=== PATIENT | female | born 1960 | race Caucasian/White ===

== ENCOUNTER → 2018-01-27 08:21 | Outpatient (CLI) | payer OTHER, SELFPAY ==
--- NOTE | 2018-01-27 | DI.MG.S_ITS ---
BILATERAL DIGITAL SCREENING MAMMOGRAM 3D/2D WITH CAD: 01/27/2018 CLINICAL: Routine screening. Family history of breast cancer. Comparison is made to exams dated: 01/16/2017 mammogram, 12/29/2015 mammogram, and 05/06/2014 mammogram - [facility]. There are scattered fibroglandular elements in both breasts. Current study was also evaluated with a Computer Aided Detection (CAD) system. There is a benign biopsy clip in the right breast. No significant masses, calcifications, or other findings are seen in either breast. There has been no significant interval change. IMPRESSION: NEGATIVE There is no mammographic evidence of malignancy. A 1 year screening mammogram is recommended. This exam was interpreted at Station ID: [id number]. NOTE: For mammograms, a report in lay terms will be sent to the patient. Approximately 15% of breast malignancies will not be visualized mammographically. In the management of a palpable breast mass, a negative mammogram must not discourage biopsy of a clinically suspicious lesion. Electronically Signed By: Dionne mcgowan/carroll:01/29/2018 14:43:34 copy to: Patrick Rincon letter sent: Normal Exam ACR BI-RADS Category 1: Negative 3341F
== END ==
PROVIDERS: PCP Family Medicine; Visit Provider Specialist
DX: Z12.31 Encounter for screening mammogram for malignant neoplasm of breast (principal); Z80.3 Family history of malignant neoplasm of breast
CPT/HCPCS: 77063; 77067

== ENCOUNTER → 2019-02-12 09:35 | Outpatient (CLI) | payer OTHER, SELFPAY ==
--- NOTE | 2019-02-12 | DI.MG.S_ITS ---
BILATERAL DIGITAL SCREENING MAMMOGRAM 3D/2D WITH CAD: 02/12/2019 CLINICAL: Routine screening. Family history of breast cancer. Comparison is made to exams dated: 01/27/2018 mammogram, 01/16/2017 mammogram, and 12/29/2015 mammogram - [facility]. There are scattered fibroglandular elements in both breasts. Current study was also evaluated with a Computer Aided Detection (CAD) system. There is a biopsy clip in the right breast. No significant masses, calcifications, or other findings are seen in either breast. There has been no significant interval change. IMPRESSION: NEGATIVE There is no mammographic evidence of malignancy. A 1 year screening mammogram is recommended. This exam was interpreted at Station ID: [id number]. NOTE: For mammograms, a report in lay terms will be sent to the patient. Approximately 15% of breast malignancies will not be visualized mammographically. In the management of a palpable breast mass, a negative mammogram must not discourage biopsy of a clinically suspicious lesion. Electronically Signed By: Joaquin alonzo/carroll:02/14/2019 18:11:41 copy to: Anabelle Cuellar letter sent: Normal Exam ACR BI-RADS Category 1: Negative 3341F
== END ==
PROVIDERS: PCP Family Medicine; Visit Provider Family Medicine
DX: Z12.31 Encounter for screening mammogram for malignant neoplasm of breast (principal); Z80.3 Family history of malignant neoplasm of breast
CPT/HCPCS: 77063; 77067

== ENCOUNTER 2019-04-19 07:28 | Day surgery (SDC) | payer OTHER, SELFPAY ==
[2019-04-19] MEDS: SODIUM CHLORIDE 0.9% 1,000 ML 200 ML IV (07:44)
[2019-04-19 07:50] VITALS: BP 117/78; PULSE 88; RESP 20; TEMP 36.3; O2SAT 100; BMI 24.2
--- NOTE | 2019-04-19 08:53 | PM.HP.1 ---
History of Present Illness History of Present Illness Date Patient Seen: 04/19/19 Time Patient Seen: 08:53 Chief complaint: [id number] Narrative: This is a 59-year-old woman who has never had a screening colonoscopy. She denies any personal or family history of colon cancer. She believes her mother may have had some colon polyps. She denies any personal history of hematochezia, melena, unexplained abdominal pain, unexplained weight loss. She has frequent sinusitis requiring antibiotics, but is otherwise healthy. She has had treatment for precancerous lesion of the cervix, and she has had 2 C sections. ROS Thirteen system review is otherwise negative other than as mentioned below and in HPI. PE: GENERAL: Well groomed and cooperative. Appears stated age. Answers questions promptly and appropriately. Vital signs noted. HENT: Normocephalic, atraumatic. Hearing intact. Oral mucosa is pink and moist. EYES: Conjunctiva pink, sclera white, no periorbital swelling. CARDIOVASCULAR: Regular rate. No pedal edema. RESPIRATORY: Non-tachypneic, breathing comfortably on room air. GASTROINTESTINAL: Abdomen soft and non-distended GENITALURINARY: No flank tenderness. MUSCULOSKELETAL: Equal tone and mass bilaterally. SKIN: Warm, dry, soft, appropriate color for ethnicity. No other lesions, rashes, or wounds. NEURO: Alert and Oriented X 3. No gross sensory deficits, or cognitive issues. PSYCH: Appropriate affect and mood. Patient History Surgical History Status post delivery Status post delivery Family & Social History Family History Mother Age: 75 Hypertension High cholesterol Mental health problem Social History: household members spouse Tobacco & Substance use: Smoking Status Never smoker alcohol intake current alcohol intake frequency a few times a week Substance Use Type does not use Meds Home Medications and Allergies Home Medications Medication Instructions Recorded Confirmed Type No Known Home Medications 04/19/19 04/19/19 History Allergies Allergy/AdvReac Type Severity Reaction Status Date / Time No Known Drug Allergies Allergy Verified 04/19/19 08:11 Exam Vital Signs (past 8 hours): - 04/19/19 07:50 Temperature 97.3 F L Pulse Rate 88 Respiratory Rate 20 Blood Pressure 117/78 Pulse Oximetry 100 Oxygen Delivery Method Room Air Assessment & Plan Assessment and plan (1) At average risk for colon cancer: Current visit: Yes Status: Acute Quality VTE Deep Vein Thrombosis/Pulmonary Embolism Present on Admission: No
[2019-04-19] MEDS: MIDAZOLAM 5 MG/5 ML VIAL IV (09:14)
[2019-04-19] MEDS: fentaNYL 250 MCG/5 ML INJ IV (09:14)
--- NOTE | 2019-04-19 09:16 | P.OP.ENDO_ITS ---
Operative Date/Time/Diagnoses Date of procedure: 04/19/19 Time of procedure: 09:16 Pre-op diagnosis: Average risk for colon cancer, never had a screening colonoscopy Post-op diagnosis: other (Average risk for colon cancer, normal colonoscopy) Procedure & Clinicians Study performed: Screening colonoscopy Same procedure as scheduled: Yes Indications: Average risk for colon cancer, never had a screening colonoscopy Surgeon: Jackie Villegas Procedure Notes SCOAP/Timeout: Performed Procedure in detail: The patient was brought to the room and placed in left lateral decubitus position with all bony prominences padded. A time-out was performed and then the patient was given procedural sedation starting with 4 mg of Versed and 100 mcg of fentanyl. A total of 6 mg of Versed and 200 micro g of fentanyl were given for the entire procedure. Vitals were monitored throughout the procedure and remained stable. Once adequately sedated the procedure was begun. A rectal exam was performed revealing no abnormalities. The colonoscope was then introduced to the rectum and advanced to the cecum in the usual fashion. The cecum was identified by the appendiceal orifice, the mucosal tri- fold, and the ileocecal valve. The scope was then retracted while rotating side to side and examining each mucosal fold. At the conclusion of the procedure retroflexion was performed and small grade 1 internal hemorrhoids without stig garcia of bleeding were seen. The scope was then withdrawn from the rectum the procedure was concluded. The patient tolerated the procedure well and was transferred to the PACU in stable condition. Scope withdrawal time: 8 Sedation minutes: 18 Specimen(s): none sent Complications: none Impression: Normal colon Post-procedure Recommendations: Colonscopy in 10 years Follow up: as needed Disposition: PACU
[2019-04-19 09:20] VITALS: BP 104/55; PULSE 80; RESP 16; TEMP 36.4; O2SAT 97
[2019-04-19 09:30] VITALS: BP 103/78; PULSE 83; RESP 16; TEMP 36.3; O2SAT 99
== END 2019-04-19 09:45 | disposition home or self-care (01) ==
PROVIDERS: PCP Family Medicine; Referring Provider Surgery; Visit Provider Surgery
PROC: 0DJD8ZZ Inspection of Lower Intestinal Tract, Via Natural or Artificial Opening Endoscopic (ICD-10-PCS; CPT 45378; principal; 2019-04-19 08:30)
DX: Z12.11 Encounter for screening for malignant neoplasm of colon (principal); K64.0 First degree hemorrhoids
CPT/HCPCS: 45378; 99152; J2250; J3010

== ENCOUNTER 2019-05-10 08:16 | Emergency (ER) | payer OTHER, SELFPAY ==
[2019-05-10] VITALS (9 sets, daily range): BP systolic 124–148; BP diastolic 67–90; PULSE 71–100; RESP 13–20; TEMP 36.9; O2SAT 96–99; BMI 24.2
--- NOTE | 2019-05-10 08:49 | ED_ITS ---
HPI - Psych General Chief Complaint: Psychiatric Symptoms Stated Complaint: psychological issues Time Seen by Provider: 05/10/19 08:36 Source: patient and family Mode of arrival: Ambulatory History of Present Illness HPI Narrative: CC: Acute anxiety and not sleeping. HPI: The patient is a 59-year-old female who presents to the emergency department with her . The patient has been very anxious since Monday. At times she has been paranoid of thinking that all of this illness has caused by the government. She was face timing with arm from a friend arm and a recognize person did not believe that that was the person arm on the phone. She has been of very suspicious arm. Since Monday of last week the patient has only slept may be a total of 15 hours according to her . The patient states that she thinks that she is a bad person that needs to repeat tent and should be here. She states that only at 1 time did she feel like she wanted to harm herself and that is when she filled the bathtub full of water and was going to step into it but decided not to. She denies wanting to hurt anyone else. She said that she could not do that. She denies a past history of any mental health history or depression. She denie s a history of asthma myocardial infarction stroke hypertension or diabetes mellitus. 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 She does not smoke cigarettes vapor chew tobacco or use any drugs such as marijuana. She does periodically drink alcohol. She denies any fever chills or sweats. She has had no headache nasal congestion sore throat. She has had no new cough or shortness of breath. She denies any chest pain palpitations dizziness abdominal pain nausea vomiting diarrhea or urinary symptoms. She does not sleep at night and is tired in the morning. Her appetite has been poor. She is not aware of as to whether not she has gained or lost weight. Related Data Home Medications Medication Instructions Recorded Confirmed No Known Home Medications 04/19/19 04/19/19 Allergies Allergy/AdvReac Type Severity Reaction Status Date / Time No Known Drug Allergies Allergy Verified 05/10/19 08:34 Review of Systems Review of Systems Narrative: The patient's review of systems were all negative except for those mentioned in the history of present illness. Patient History Surgical History Status post delivery Status post delivery Family History Mother Age: 75 Hypertension High cholesterol Mental health problem Social History household members: spouse Smoking Status: Never smoker alcohol intake: current Smoking Status: Never smoker alcohol intake frequency: a few times a week Substance Use Type: does not use Exam Narrative Exam Narrative: PHYSICAL EXAM: CONSTITUTIONAL: Awake, Alert, Oriented, Cooperative in NAD. Does not appear toxic or ill. The patient speaks in a monotone. She has a blunted flat affect. She does not appear excited or emotional. The patient became tearful when she states that she thinks about a friend media who is developing dementia. HEAD: AT/NC EENT: PERRL, FROM of eyes, no discharge, No epistaxis or nasal drainage Oral mucosa is moist and pink, posterior pharynx is without erythema or exudate. NECK: Supple, no obvious JVD, Trachea is midline without stridor, no palpable LN or masses. SPINE: No gross deformity, no palpable tenderness of the cervical, thoracic, lumbar or sacral spine. No CVA tenderness. THORAX: No deformity, retractions, chest wall tenderness. LUNGS: Clear with symmetrical breath sounds without respiratory distress HEART: Normal heart tones, regular rhythm and rate without murmur. ABDOMEN: Soft, non-tender, normal bowel sounds without guarding, rebound, rigidity or palpable mass EXTREMITIES: No edema, cyanosis, deformity or tenderness. SKIN: No rash, bruising, petechiae or purpura. NEURO: Awake, alert, oriented, conversive, cranial nerves II-XII are symmetrical and normal, moves all 4 extremities and is ambulatory Initial Vital Signs Initial Vital Signs: Vital Signs Temperature 98.4 F 05/10/19 08:34 Pulse Rate 75 05/10/19 08:34 Respiratory Rate 20 05/10/19 08:34 Blood Pressure 131/76 05/10/19 08:34 Pulse Oximetry 99 05/10/19 08:34 Course Course Course Narrative: 09:57 the patient's laboratory chemistries appear normal. Social dose work has been notified. 1028: Patient is considered medically cleared. The certified medical assistant states that the patient has agreed to her inpatient treatment and further evaluation. They are working on placement. 1306: The certified medical assistant is working on trying to find placement for the patient. One institution requested a neuro consult thinking that the patient has a neurological component. Her neuro exam at this time is completely within normal limits. We do not have the capabilities at this emergency department to order a neuro consult and evaluation without transferring the patient to a secondary or tertiary care center. There is no neurologist in town who comes into the emergency department to consult and evaluate patient's. 1450 the patient's been medically cleared. Her laboratory chemistries are all within an acceptable normal range. Her neuro exam clinically is normal and symmetrical. The patient is confused and is speaking gibberish. A chest x-ray will be obtained on the patient as well as a CT of her head. The patient has been excepted to [facility]. Her bed will become available after 7:00 p.m.. 1638 chest x-ray reveals no acute cardiopulmonary pathology. CT of the head reveals no acute intracranial pathology, hemorrhage, infarct, mass effect. The patient is be going to be transferred to [facility]. Orders Ordered: ED Orders 05/10/19 08:47 Consult to [facility] [place] [facility] Urgent EKG-12 Lead Stat 05/10/19 09:35 Acetaminophen Stat Complete Blood Count AUTO DIFF Stat Comprehensive Metabolic Panel Stat Ethanol (ETOH) Stat Salicylate Stat Thyroid Stimulating Hormone Stat 05/10/19 11:05 Urine Drug Screen, Rapid Stat 05/10/19 14:56 CT head/brain wo con Stat 05/10/19 14:57 XR chest 1V Stat Vital Signs Vital signs: Vital Signs - 8 hr 05/10/19 09:00 05/10/19 09:30 05/10/19 10:00 Pulse Rate 76 71 76 Respiratory Rate Blood Pressure [Left Arm] Pulse Oximetry 98 97 96 05/10/19 11:52 05/10/19 13:22 05/10/19 14:03 Pulse Rate 71 83 82 Respiratory Rate 13 15 Blood Pressure [Left Arm] 134/71 124/67 132/79 Pulse Oximetry 98 98 96 05/10/19 15:27 Pulse Rate 79 Respiratory Rate 17 Blood Pressure [Left Arm] 148/90 H Pulse Oximetry 98 MDM - Psych Medical Records Attestation: I reviewed the patient's medical records. Lab Data Attestation: I reviewed the patient's lab results. Result diagrams: 05/10/19 09:35 05/10/19 09:35 Labs: Lab Results 05/10/19 05/10/19 05/10/19 Range/Units 09:35 09:35 09:35 WBC 7.2 (4.5-11.0) X10^3/uL RBC 4.77 (4.0-5.2) X10^6/uL Hgb 14.7 (12.0-16.0) g/dL Hct 43.5 (36-46) % MCV 91.4 (80-100) fL MCH 30.9 (26-34) PG MCHC 33.8 (30-36) % RDW 12.7 (11.6-14.8) % Plt Count 253 (150-400) X10^3/uL Neut % (Auto) 66.9 (50-75) % Lymph % (Auto) 25.3 (25-40) % Daggett % (Auto) 7.1 (3-14) % Eos % (Auto) 0.1 L (2-4) % Baso % (Auto) 0.6 (0-2) % Neut # (Auto) 4800 (8143-7513) /uL Lymph # (Auto) 1800 (0983-4764) /uL Daggett # (Auto) 500 (0-900) /uL Eos # (Auto) 0 (0-450) /uL Baso # (Auto) 0 (0-100) /uL Sodium 139 (137-145) mmol/L Potassium 4.0 (3.4-5.1) mmol/L Chloride 104 (98-107) mmol/L Carbon Dioxide 31 (22-32) mmol/L BUN 15 (7-17) mg/dL Creatinine 0.77 (0.52-1.04) mg/dL Estimated GFR > 60.0 (>60) mL/min BUN/Creatinine Ratio 19.5 (6-22) Glucose 108 H (70-100) mg/dL Calcium 9.4 (8.4-10.2) mg/dL Total Bilirubin 0.4 (0.2-1.3) mg/dL AST 20 (14-36) IU/L ALT 19 (<35) IU/L Alkaline Phosphatase 66 (38-126) U/L Total Protein 7.4 (6.3-8.2) g/dL Albumin 3.9 (3.5-5.0) g/dL Globulin 3.5 (1.7-4.1) g/dL Albumin/Globulin Ratio 1.1 (1.0-2.8) TSH 0.58 (0.47-4.68) uIU/mL Salicylates < 1.0 (<20) mg/dL U Opiates 300ng/mL cut (Negative) Ur Oxycodone Screen (Negative) Urine Methadone Screen (Negative) Acetaminophen < 10 L (10-30) ug/mL Ur Barbiturates Screen (Negative) U Tricyclic Antidepress (Negative) Ur Phencyclidine Scrn (Negative) Ur Amphetamines Screen (Negative) U Methamphetamines Scrn (Negative) Ur MDMA Scrn (Ecstasy) (Negative) U Benzodiazepines Scrn (Negative) Urine Cocaine Screen (Negative) U Marijuana (THC) Screen (Negative) Ethyl Alcohol < 10 ( - 10) mg/dL 05/09/ Range/Units 11:05 WBC (4.5-11.0) X10^3/uL RBC (4.0-5.2) X10^6/uL Hgb (12.0-16.0) g/dL Hct (36-46) % MCV (80-100) fL MCH (26-34) PG MCHC (30-36) % RDW (11.6-14.8) % Plt Count (150-400) X10^3/uL Neut % (Auto) (50-75) % Lymph % (Auto) (25-40) % Daggett % (Auto) (3-14) % Eos % (Auto) (2-4) % Baso % (Auto) (0-2) % Neut # (Auto) (9769-6791) /uL Lymph # (Auto) (0536-7092) /uL Daggett # (Auto) (0-900) /uL Eos # (Auto) (0-450) /uL Baso # (Auto) (0-100) /uL Sodium (137-145) mmol/L Potassium (3.4-5.1) mmol/L Chloride (98-107) mmol/L Carbon Dioxide (22-32) mmol/L BUN (7-17) mg/dL Creatinine (0.52-1.04) mg/dL Estimated GFR (>60) mL/min BUN/Creatinine Ratio (6-22) Glucose (70-100) mg/dL Calcium (8.4-10.2) mg/dL Total Bilirubin (0.2-1.3) mg/dL AST (14-36) IU/L ALT (<35) IU/L Alkaline Phosphatase (38-126) U/L Total Protein (6.3-8.2) g/dL Albumin (3.5-5.0) g/dL Globulin (1.7-4.1) g/dL Albumin/Globulin Ratio (1.0-2.8) TSH (0.47-4.68) uIU/mL Salicylates (<20) mg/dL U Opiates 300ng/mL cut Negative (Negative) Ur Oxycodone Screen Negative (Negative) Urine Methadone Screen Negative (Negative) Acetaminophen (10-30) ug/mL Ur Barbiturates Screen Negative (Negative) U Tricyclic Antidepress Negative (Negative) Ur Phencyclidine Scrn Negative (Negative) Ur Amphetamines Screen Negative (Negative) U Methamphetamines Scrn Negative (Negative) Ur MDMA Scrn (Ecstasy) Negative (Negative) U Benzodiazepines Scrn Negative (Negative) Urine Cocaine Screen Negative (Negative) U Marijuana (THC) Screen Negative (Negative) Ethyl Alcohol ( - 10) mg/dL Point of Care Testing Glucose POC 83 Urine Dip Bedside Urine Glucose Negative Bedside Urine Bilirubin - Negative Bedside Urine Ketone - Negative Urine Specific [place] 1.015 Bedside Urine Occult Blood - Negative Bedside Urine pH 7.0 Bedside Urine Protein - Negative Bedside Urine Urobilinogen - Negative Bedside Urine Nitrite - Negative Bedside Urine Leukocytes - Negative Esterase ECG Data Attestation: I personally reviewed and interpreted this ECG as follows: Interpretation: The patient's EKG obtained on May 09 at 09:0 7:33 a.m. reveals a sinus rhythm with a ventricular rate of 83. Intervals are normal with normal axis. T-wave is inverted in lead V1. There are no other acute diagnostic ST or T-wave changes. The EKG otherwise appears normal. Discharge Plan Departure Patient Disposition: Xfer Psychiatric Hosp Clinical Impression: Acute psychosis, Acute anxiety Depression Qualifiers: Depression Type: unspecified Qualified Code(s): F32.9 - Major depressive disorder, single episode, unspecified Discharge Date/Time: 05/10/19 19:10 Referrals: Patrick Rincon MD [Primary Care Provider] -
[2019-05-10 09:42] LABS: Add Manual Diff / Slide Review NO; Basophils Absolute Auto 0 /uL (0-100); Basophils Percent Auto 0.6 % (0-2); Eosinophils Absolute Auto 0 /uL (0-450); Eosinophils Percent Auto 0.1 % (2-4); Hematocrit 43.5 % (36-46); Hemoglobin 14.7 g/dL (12.0-16.0); Lymphocytes Absolute Auto 1800 /uL (1100-4500); Lymphocytes Percent Auto 25.3 % (25-40); Mean Corpuscular HGB Conc 33.8 % (30-36); Mean Corpuscular Hemoglobin 30.9 PG (26-34); Mean Corpuscular Volume 91.4 fL (80-100); Monocytes Absolute Auto 500 /uL (0-900); Monocytes Percent Auto 7.1 % (3-14); Neutrophils Absolute Auto 4800 /uL (1500-7000); Neutrophils Percent Auto 66.9 % (50-75); Platelet Count 253 X10^3/uL (150-400); Red Blood Cell Count 4.77 X10^6/uL (4.0-5.2); Red Cell Distribution Width 12.7 % (11.6-14.8); White Blood Cell Count 7.2 X10^3/uL (4.5-11.0)
[2019-05-10 09:54] LABS: Acetaminophen < 10 ug/mL (10-30); Alanine Aminotransferase 19 IU/L (<35); Albumin 3.9 g/dL (3.5-5.0); Albumin Globulin Ratio 1.1 (1.0-2.8); Alkaline Phosphatase 66 U/L (38-126); Aspartate Aminotransferase 20 IU/L (14-36); BUN Creatinine Ratio 19.5 (6-22); Bilirubin Total 0.4 mg/dL (0.2-1.3); Blood Urea Nitrogen 15 mg/dL (7-17); Calcium 9.4 mg/dL (8.4-10.2); Carbon Dioxide 31 mmol/L (22-32); Chloride 104 mmol/L (98-107); Estimated Glomerular Filt Rate > 60.0 mL/min (>60); Ethanol (ETOH) < 10 mg/dL; Globulin 3.5 g/dL (1.7-4.1); Glucose 108 mg/dL (70-100); HEMOLYSIS < 15 (0-50); Salicylate < 1.0 mg/dL (<20); Sodium 139 mmol/L (137-145); Total Protein 7.4 g/dL (6.3-8.2)
[2019-05-10 10:29] LABS: Thyroid Stimulating Hormone 0.58 uIU/mL (0.47-4.68)
--- NOTE | 2019-05-10 10:52 | CM.SWNOTE ---
Addendum entered by Fely Aguilar, [facility] 05/10/19 15:43: Updated Dr Rodriguez and nursing staff. Spoke w/spouse Bony and explained what to bring list he will grab items for Shital before transport time. Addendum entered by Fely Sheikh, [facility] 05/10/19 15:26: Accepted at [facility] [place] . Intake: Marvy Accepting Physician: Dr Smita Harris RN to RN report: P# [phone] Shital and spouse Bony updated and remain agreeable to plan. 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 Beginning Monday, Shitla admits to increasing paranoid thoughts, has only slept approx 15 hours since Monday, loss of appetite, admits to feeling I am wrong and admits to thinking about suicide by drowning in her bathtub. Spouse Bony admits he is very concerned about his and she has been seeing things like their Vet becoming someone evil and Shital has not recognized her own two dtrs on facetime. 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 Hx Mental Health and Chemical None reported, no significant Dependency h/o depression or anxiety per Shital and spouse Bony Family Hx of Behavioral Abuse Sister and Mother have significant mental health issues, Shital did not elaborate Psychiatric Hospitalizations (date(s)/ None reported location) Support System(s) Spouse, two adult dtrs living in the area, friends School/Work Not employed at this time Legal Matters - Outstanding Issues None reported Orientation (Person/Place/Time) Does not know date, recognizes her spouse, knows she is in the ER Affect Appropriate although Shital seems suspicious of this SCAGLIOLA MECHANIC, Thought Content - Specify/Describe Shital admits she does not know Obsessions, Delusions, Hallucinations why her brought her in, she focuses her attention and story on not being able to help her friend that has Alz. , she explains it's too late now re: ability to help. Shital admits she filled a bathtub up when thinking about suicide but cannot discuss w/ this SCAGLIOLA MECHANIC what would happen in the bathtub ? Shital drained the water quickly. Shital says over and over that she is a bad person and thought content seems focused on self hatred and it being too late Thought Processes (Xmpphce-Giehyrbz-Ofpc Not logical or goal directed Ppsezoku-Xarygjge-Bjvvfbpiis- Fikuqvjftprwfb-Ijcoqqr-Srpjkoqtqesd- Thought Blocking) Speech (Lrzwdv-Aeoa-Ylqsafa-Rapid-Soft- Normal, soft spoken Loud-Pressured) Motor (Mvlxor-Kmspssmjq-Tyaj-Other) Normal Insight (Present-Partially Present- Impaired Impaired) Judgement (Intact-Impaired) Impaired Impulse Control (Adequate-Impaired) Unable to assess Memory (Tzgxdldxr-Fzkuhi-Dkicrf, Impaired, both in assessment Impaired-Intact) and w/in the last 5 days Concentration (Intact-Impaired) Seems imparied today Attention (Intact-Impaired) Seems impaired today Behavior (Appropriate-Inappropriate) Calm, cooperative, boyd Suicidal Ideation (Plan) Yes: W/in the last 5 days, bathtub drowning i guess? Homicidal Ideation (Plan) No Intervention After above assessment; suggested inpt MH stay for stabilization and medication trial and Paigeagreed stating I need help RA Plan Attempt inpt MH unit
[2019-05-10 11:31] LABS: UR Morphine/Opiate cutoff 300 Negative (Negative); Ur Creatinine Normal (Normal); Ur Specific Gravity Normal (Normal); Urine Amphetamines Negative (Negative); Urine Barbiturates Negative (Negative); Urine Benzodiazepines Negative (Negative); Urine Cocaine Negative (Negative); Urine MDMA Negative (Negative); Urine Methadone Negative (Negative); Urine Methamphetamines Negative (Negative); Urine Oxycodone Negative (Negative); Urine Phencyclidine Negative (Negative); Urine Tetrahydrocannabinol Negative (Negative); Urine Tricyclic Antidepressant Negative (Negative); Urine pH Normal (Normal)
--- NOTE | 2019-05-10 14:56 | DI.CT.S_ITS ---
PROCEDURE: CT HEAD/BRAIN WO CON INDICATIONS: psych evaluation and speaking jiberish TECHNIQUE: Noncontrast 4.5 mm thick angled axial sections acquired from the foramen magnum to the vertex, with coronal and sagittal reformats. For radiation dose reduction, the following was used: automated exposure control, adjustment of mA and/or kV according to patient size. COMPARISON: None. FINDINGS: Image quality: Excellent. CSF spaces: Basal cisterns are patent. No extra-axial fluid collections. Ventricles are normal in size and shape. Brain: No midline shift. No intracranial masses or hemorrhage. Yoo-white matter interface is normal. Skull and face: Calvarium and visualized facial bones are intact, without suspicious lesions. Sinuses: Visualized sinuses and mastoids are clear. IMPRESSION: Normal head CT. Dictated by: Domenico Rain M.D. on 05/10/2019 at 15:19 Approved by: Domenico Rain M.D. on 05/10/2019 at 15:30
--- NOTE | 2019-05-10 14:57 | DI.RAD.S_ITS ---
PROCEDURE: XR CHEST 1V INDICATIONS: acute confusion TECHNIQUE: One view of the chest was acquired. COMPARISON: None. FINDINGS: Surgical changes and devices: None. Lungs and pleura: Lungs are clear. No pleural effusions or pneumothorax. Mediastinum: Mediastinal contours appear normal. Heart size is normal. Bones and chest wall: No suspicious bony lesions. Overlying soft tissues appear unremarkable. IMPRESSION: No acute cardiopulmonary pathology. Dictated by: Tong Owen M.D. on 05/10/2019 at 15:20 Approved by: Tong Owen M.D. on 05/10/2019 at 15:22
--- NOTE | 2019-05-11 10:56 | CM.SWNOTE ---
Late Entry In addition: Attempted [facility], [facility] and [facility]- No beds at [facility] and [facility], [facility] declined d/t Shital Berry far from cognitive baseline JW
== END 2019-05-10 19:10 ==
PROVIDERS: Emergency Provider Emergency Medicine; PCP Family Medicine
DX: F23 Brief psychotic disorder (principal); F41.9 Anxiety disorder, unspecified; F32.9 Major depressive disorder, single episode, unspecified
CPT/HCPCS: 36415; 70450; 71045; 80053; 80305; 80320; 80329; 81003; 82962; 84443; 85025; 93005; 99284; G0480

== ENCOUNTER → 2020-02-19 15:57 | Outpatient (CLI) | payer OTHER, SELFPAY ==
--- NOTE | 2020-02-19 | DI.MG.S_ITS ---
BILATERAL DIGITAL SCREENING MAMMOGRAM 3D/2D WITH CAD: 02/19/2020 CLINICAL: Family history of breast cancer. Routine screening. Comparison is made to exams dated: 02/12/2019 mammogram, 01/27/2018 mammogram, and 01/16/2017 mammogram - [facility]. There are scattered fibroglandular elements in both breasts. Current study was also evaluated with a Computer Aided Detection (CAD) system. There is a biopsy clip in the right breast. No significant masses, calcifications, or other findings are seen in either breast. There has been no significant interval change. IMPRESSION: NEGATIVE There is no mammographic evidence of malignancy. A 1 year screening mammogram is recommended. This exam was interpreted at Station ID: [id number]. NOTE: For mammograms, a report in lay terms will be sent to the patient. Approximately 15% of breast malignancies will not be visualized mammographically. In the management of a palpable breast mass, a negative mammogram must not discourage biopsy of a clinically suspicious lesion. Electronically Signed By: Miguel downing/carroll:02/19/2020 16:36:08 copy to: Anabelle Cuellar letter sent: Normal Exam ACR BI-RADS Category 1: Negative 3341F
== END ==
PROVIDERS: PCP Physician Assistant Medical; Referring Provider Physician Assistant Medical; Visit Provider Physician Assistant Medical
DX: Z12.31 Encounter for screening mammogram for malignant neoplasm of breast (principal); Z80.3 Family history of malignant neoplasm of breast
CPT/HCPCS: 77063; 77067

== ENCOUNTER → 2021-02-24 11:14 | Outpatient (CLI) | payer OTHER, SELFPAY ==
--- NOTE | 2021-02-24 | DI.MG.S_ITS ---
BILATERAL DIGITAL SCREENING MAMMOGRAM 3D/2D WITH CAD: 02/24/2021 CLINICAL: Routine screening. Family history of breast cancer. Comparison is made to exams dated: 02/19/2020 mammogram, 02/12/2019 mammogram, and 01/27/2018 mammogram - [facility]. There are scattered fibroglandular elements in both breasts. Current study was also evaluated with a Computer Aided Detection (CAD) system. There is a biopsy clip in the right breast. No significant masses, calcifications, or other findings are seen in either breast. There has been no significant interval change. IMPRESSION: NEGATIVE There is no mammographic evidence of malignancy. A 1 year screening mammogram is recommended. This exam was interpreted at Station ID: [id number]. NOTE: For mammograms, a report in lay terms will be sent to the patient. Approximately 15% of breast malignancies will not be visualized mammographically. In the management of a palpable breast mass, a negative mammogram must not discourage biopsy of a clinically suspicious lesion. Electronically Signed By: Elian holman/carroll:02/24/2021 12:19:18 copy to: Anabelle Cuellar letter sent: Normal Exam ACR BI-RADS Category 1: Negative 3341F
== END ==
PROVIDERS: PCP Internal Medicine; Referring Provider Internal Medicine; Visit Provider Internal Medicine
DX: Z12.31 Encounter for screening mammogram for malignant neoplasm of breast (principal); Z80.3 Family history of malignant neoplasm of breast
CPT/HCPCS: 77063; 77067

== ENCOUNTER 2021-09-03 21:44 | Emergency (ER) | payer OTHER, SELFPAY ==
[2021-09-03 21:57] VITALS: BP 78/51; PULSE 73; RESP 22; TEMP 36; O2SAT 97
--- NOTE | 2021-09-03 21:58 | DI.RAD.S_ITS ---
PROCEDURE: XR CHEST 1V INDICATIONS: syncope. +covid TECHNIQUE: One view of the chest was acquired. COMPARISON: [facility], CR, XR CHEST 1V, 05/10/2019, 14:55. FINDINGS: Surgical changes and devices: None. Lungs and pleura: Lungs are clear. No pleural effusions or pneumothorax. Mediastinum: Mediastinal contours appear normal. Heart size is normal. Bones and chest wall: No suspicious bony lesions. Overlying soft tissues appear unremarkable. IMPRESSION: 1. No acute cardiopulmonary disease. Dictated by: Miguel Parker M.D. on 09/03/2021 at 22:38 Approved by: Miguel Parker M.D. on 09/03/2021 at 22:39
--- NOTE | 2021-09-03 22:00 | ED_ITS ---
HPI - Syncope General Chief Complaint: Syncope Stated Complaint: GLF face, COVID + Time Seen by Provider: 09/03/21 21:54 Source: patient Mode of arrival: Ambulatory Limitations: no limitations History of Present Illness HPI narrative: This is a 61-year-old female with history of anxiety on escitalopram who was diagnosed with COVID this week. Symptoms started Monday. She had fever, fatigue and some nausea. She did have a headache earlier today. She states she had walked down the stairs to go to the bathroom and had a syncopal episode. Patient did her head and has a small laceration under her nose. She states no headache, no neck pain, no chest pain or shortness of breath. She states she is no longer nauseated, she has not had any vomiting. She denies dysuria, urgency or frequency. She denies any back or flank pain. No abdominal pain. No diarrhea constipation. No swelling of her extremities. Patient does not believe her tetanus is up-to-date. Her only medication is escitalopram. S he is not on any anticoagulants. No tobacco, she denies alcohol, no illicit. She states she is had 1 prior syncopal episode when she was sick in the past. She states after the event occurred she was not dizzy walking around. Related Data Home Medications Medication Instructions Recorded Confirmed No Known Home Medications 04/19/19 04/19/19 Allergies Allergy/AdvReac Type Severity Reaction Status Date / Time No Known Drug Allergies Allergy Verified 09/03/21 21:57 Review of Systems Review of Systems ROS Unobtainable: All systems reviewed & are unremarkable except as noted in HPI and below Patient History Surgical History Status post delivery Status post delivery Family History Mother Age: 77 Hypertension High cholesterol Mental health problem Social History household members: spouse Smoking Status: Never smoker alcohol intake: current Smoking Status: Never smoker alcohol intake frequency: a few times a week Substance Use Type: does not use Exam Narrative Exam Narrative: GEN: well nourished, well appearing female, alert and oriented x 3, patient appears to be in mild distress. HEENT: Atraumatic, pupils are equal round reactive to light, extraocular movements are intact, nares are clear, patient has a upside down U shaped laceration just underneath the left Weinstein that does gape with movement, TMs are clear with no fluid, there is no conjunctival pallor. Throat is clear without any exudates, erythema, tonsillar enlargement or uvular deviation HEART: Regular rate and rhythm without murmur, clicks, rubs. Pulses are equal in upper and lower extremities LUNGS:Lungs clear to auscultation, no wheezes, rales, crackles, chest moves symmetrically, no tachypnea accessory muscle use. ABD:bowel sounds normal, soft, non-tender, no guarding, rebound, rigidity, no masses noted, no hepatosplenomegaly, no pulsatile bruit or mass :No CVA tenderness MSCL: Non-tender, no muscle atrophy, muscles strength 5/5 upper and lower extremities, full range of motion, normal gait NEURO:CN 2-12 intact, sensation normal SKIN: No rash, erythema or other skin changes Initial Vital Signs Initial Vital Signs: Vital Signs Temperature 96.8 F L 09/03/21 21:57 Pulse Rate 73 09/03/21 21:57 Respiratory Rate 22 09/03/21 21:57 Blood Pressure 78/51 L 09/03/21 21:57 Pulse Oximetry 97 09/03/21 21:57 Oxygen Delivery Method 09/03/21 21:57 Procedures Laceration Repair Laceration 1: Time of procedure: 23:49 Site: lip (just below left nare) Side (If applicable): left Size (cm): 1.9 Description: flap (upside down U shape) Depth: simple, single layer Local Anesthetic: lidocaine 2% Amount of anesthesia used (mL): 5 Pre-repair: wound explored, irrigated extensively and deep structures intact Skin layer closed with: vicryl Skin layer suture size: 5-0 Number of sutures: 7 Technique: simple, interrupted Scores GCS Clifton coma scale eye opening: Spontaneous Cl[place] coma scale verbal response: Orientated Cl[place] coma scale motor response: Obey commands Clifton coma scale total score: 15 Course Orders Ordered: ED Orders 09/03/21 21:58 XR chest 1V Stat EKG-12 Lead Stat 09/03/21 22:00 Complete Blood Count AUTO DIFF Stat Comprehensive Metabolic Panel Stat Lipase Stat NT-proBNP (BNP-Adult 18+) Stat Partial Thromboplastin Time Stat Prothrombin Time INR Stat Troponin & CK Cardiac Panel Stat 09/03/21 22:30 Ictotest Urine Stat Urine Culture Stat Urine Microscopic Stat 09/03/21 23:10 US renal complete Stat Discontinued Medications Diphtheria/Tetanus/Acell Pertussis (Tet,Diph,Pertuss(Acell),Vac/Pf 0.5 Ml Syringe) 0.5 ml IM .ONCE ONE Stop: 09/03/21 21:59 Last Admin: 09/03/21 22:19 Dose: 0.5 ml Documented By: SANDRA Sodium Chloride (Normal Saline 0.9%) 1,000 mls @ 1,000 mls/hr IV BOLUS ONE Stop: 09/03/21 22:57 Last Infusion: 09/03/21 23:15 Dose: 0 mls/hr Documented By: Admin: 09/03/21 22:18 Dose: 1,000 mls/hr Documented By: SANDRA Lidocaine HCl (Lidocaine 2% Inj Sdv) 10 ml INJ INTRA-OP ONE Stop: 09/03/21 22:14 Last Admin: 09/03/21 23:57 Dose: 10 ml Documented By: EB Lidocaine HCl (Lidocaine 0.5% (Pf)) 50 ml INJ INTRA-OP ONE Stop: 09/03/21 22:15 Last Admin: 09/03/21 23:58 Dose: Not Given Documented By: EB Lidocaine/Prilocaine (Lidocaine/Prilocaine 5 Gm) 5 gm TOP NOW ONE Stop: 09/03/21 21:59 Last Admin: 09/04/21 00:41 Dose: Not Given Documented By: MLM Lidocaine/Sodium Bicarbonate (Lido 1%/Sod Bicarb 8.4% (10ml) 10 Ml Syringe) 10 ml INJ NOW ONE Stop: 09/03/21 21:59 Last Admin: 09/04/21 00:41 Dose: Not Given Documented By: MLEricka Vital Signs Vital signs: Vital Signs - 8 hr 09/03/21 21:57 09/03/21 22:02 09/03/21 22:07 Temperature 96.8 F L 98.8 F Pulse Rate 73 Pulse Rate [Orthostatic Lying] 75 Pulse Rate [Orthostatic Sitting] 73 Pulse Rate [Orthostatic Standing] 87 Respiratory Rate 22 Blood Pressure 78/51 L Blood Pressure [Orthostatic Lying] 102/48 L Blood Pressure [Orthostatic Sitting] 78/51 L Blood Pressure [Orthostatic Standing] 74/50 L Pulse Oximetry 97 Oxygen Delivery Method Room Air 09/03/21 22:30 09/03/21 22:30 09/03/21 23:00 Temperature Pulse Rate 72 Pulse Rate [Orthostatic Lying] Pulse Rate [Orthostatic Sitting] Pulse Rate [Orthostatic Standing] Respiratory Rate 18 Blood Pressure 87/53 L 119/62 Blood Pressure [Orthostatic Lying] Blood Pressure [Orthostatic Sitting] Blood Pressure [Orthostatic Standing] Pulse Oximetry 95 Oxygen Delivery Method Room Air 09/03/21 23:00 09/03/21 23:30 09/03/21 23:30 Temperature Pulse Rate 76 76 Pulse Rate [Orthostatic Lying] Pulse Rate [Orthostatic Sitting] Pulse Rate [Orthostatic Standing] Respiratory Rate 16 13 Blood Pressure 102/59 L Blood Pressure [Orthostatic Lying] Blood Pressure [Orthostatic Sitting] Blood Pressure [Orthostatic Standing] Pulse Oximetry 98 96 Oxygen Delivery Method 09/04/21 00:00 09/04/21 00:00 09/04/21 00:30 Temperature Pulse Rate 79 79 Pulse Rate [Orthostatic Lying] Pulse Rate [Orthostatic Sitting] Pulse Rate [Orthostatic Standing] Respiratory Rate 18 12 Blood Pressure 100/60 Blood Pressure [Orthostatic Lying] Blood Pressure [Orthostatic Sitting] Blood Pressure [Orthostatic Standing] Pulse Oximetry 97 97 Oxygen Delivery Method 09/04/21 01:00 09/04/21 01:00 Temperature Pulse Rate 81 Pulse Rate [Orthostatic Lying] Pulse Rate [Orthostatic Sitting] Pulse Rate [Orthostatic Standing] Respiratory Rate 17 Blood Pressure 94/51 L Blood Pressure [Orthostatic Lying] Blood Pressure [Orthostatic Sitting] Blood Pressure [Orthostatic Standing] Pulse Oximetry 96 Oxygen Delivery Method MDM - Syncope Lab Data Result diagrams: 09/03/21 22:00 09/03/21 22:00 Labs: Lab Results 09/03/21 09/03/21 09/03/21 Range/Units 22:00 22:00 22:00 WBC 8.0 (4.5-11.0) X10^3/uL RBC 4.44 (4.0-5.2) X10^6/uL Hgb 12.9 (12.0-16.0) g/dL Hct 38.7 (36-46) % MCV 87.2 (80-100) fL MCH 29.1 (26-34) PG MCHC 33.3 (30-36) % RDW 14.1 (11.6-14.8) % Plt Count 255 (150-400) X10^3/uL Neut % (Auto) 69.6 (50-75) % Lymph % (Auto) 21.5 L (25-40) % Pratt % (Auto) 8.5 (3-14) % Eos % (Auto) 0.1 L (2-4) % Baso % (Auto) 0.3 (0-2) % Neut # (Auto) 5600 (4787-1492) /uL Lymph # (Auto) 1700 (8576-5533) /uL Pratt # (Auto) 700 (0-900) /uL Eos # (Auto) 0 (0-450) /uL Baso # (Auto) 0 (0-100) /uL PT 11.9 (10.1-12.7) SECONDS INR 1.1 (0.9-1.3) APTT 26 L (26.4-36.2) SECONDS Sodium 137 (137-145) mmol/L Potassium 4.0 (3.4-5.1) mmol/L Chloride 99 (98-107) mmol/L Carbon Dioxide 29 (22-32) mmol/L BUN 14 (7-17) mg/dL Creatinine 1.13 H (0.52-1.04) mg/dL Estimated GFR 56 L (>60) mL/min BUN/Creatinine Ratio 12.4 (6-22) Glucose 143 H (70-100) mg/dL Calcium 8.9 (8.4-10.2) mg/dL Total Bilirubin 0.4 (0.2-1.3) mg/dL AST 25 (14-36) IU/L ALT 19 (<35) IU/L Alkaline Phosphatase 73 (38-126) U/L Total Creatine Kinase 42 (30-135) U/L CK-MB (CK-2) TNP CK-MB (CK-2) Rel Index TNP Troponin I < 0.012 (0.01-0.034) ng/mL NT-Pro-B Natriuret Pep (<125) pg/mL Total Protein 7.3 (6.3-8.2) g/dL Albumin 4.0 (3.5-5.0) g/dL Globulin 3.3 (1.7-4.1) g/dL Albumin/Globulin Ratio 1.2 (1.0-2.8) Lipase 451 H (23-300) U/L Ur Bilirubin Confirm (Negative) Urine RBC (0-5/HPF) Urine WBC (0-5/HPF) Ur Squamous Epith Cells (0-5/HPF) Calcium Oxalate Crystal Urine Bacteria (None) Hyaline Casts (None) Urine Mucus (Negative) Ur Culture Indicated? 09/03/21 09/03/21 09/03/21 Range/Units 22:00 22:30 22:30 WBC (4.5-11.0) X10^3/uL RBC (4.0-5.2) X10^6/uL Hgb (12.0-16.0) g/dL Hct (36-46) % MCV (80-100) fL MCH (26-34) PG MCHC (30-36) % RDW (11.6-14.8) % Plt Count (150-400) X10^3/uL Neut % (Auto) (50-75) % Lymph % (Auto) (25-40) % Pratt % (Auto) (3-14) % Eos % (Auto) (2-4) % Baso % (Auto) (0-2) % Neut # (Auto) (0346-2641) /uL Lymph # (Auto) (7104-8276) /uL Pratt # (Auto) (0-900) /uL Eos # (Auto) (0-450) /uL Baso # (Auto) (0-100) /uL PT (10.1-12.7) SECONDS INR (0.9-1.3) APTT (26.4-36.2) SECONDS Sodium (137-145) mmol/L Potassium (3.4-5.1) mmol/L Chloride (98-107) mmol/L Carbon Dioxide (22-32) mmol/L BUN (7-17) mg/dL Creatinine (0.52-1.04) mg/dL Estimated GFR (>60) mL/min BUN/Creatinine Ratio (6-22) Glucose (70-100) mg/dL Calcium (8.4-10.2) mg/dL Total Bilirubin (0.2-1.3) mg/dL AST (14-36) IU/L ALT (<35) IU/L Alkaline Phosphatase (38-126) U/L Total Creatine Kinase (30-135) U/L CK-MB (CK-2) CK-MB (CK-2) Rel Index Troponin I (0.01-0.034) ng/mL NT-Pro-B Natriuret Pep 170 H (<125) pg/mL Total Protein (6.3-8.2) g/dL Albumin (3.5-5.0) g/dL Globulin (1.7-4.1) g/dL Albumin/Globulin Ratio (1.0-2.8) Lipase (23-300) U/L Ur Bilirubin Confirm Negative (Negative) Urine RBC 0-1/hpf (0-5/HPF) Urine WBC 1-5/hpf (0-5/HPF) Ur Squamous Epith Cells 5-10 /hpf H (0-5/HPF) Calcium Oxalate Crystal Many H Urine Bacteria Many (>30) H (None) Hyaline Casts 10-30/lpf (None) Urine Mucus 1+ H (Negative) Ur Culture Indicated? Culture not indicate Point of Care Testing Test Results Negative Glucose POC 134 Urine Dip Bedside Urine Glucose Negative Bedside Urine Bilirubin + 1 Bedside Urine Ketone +/- 5 Urine Specific [place] 1.03 Bedside Urine Occult Blood - Negative Bedside Urine pH 6.0 Bedside Urine Protein ++ 100 Bedside Urine Urobilinogen +/- 1mg Bedside Urine Nitrite - Negative Bedside Urine Leukocytes + 70 Esterase Imaging Data Chest x-ray: Radiologist's Impression: Close Chest X-Ray (Signed) Miguel Parker - 09/03/21 Mammogram Screening (Signed) Elian Dias - 02/24/21 Mammogram Screening (Signed) Miguel Parker - 02/19/20 Chest X-Ray (Signed) Tong Owen - 05/10/[address] (Signed) Piter Rain - 05/10/19 Telemetry Strips 04/19/19 Mammogram Screening (Addendum) Joaquin Vides - 02/12/19 Mammogram Screening (Signed) Dionne Wall - 01/27/[address] [address] XRay Report Signed Patient: Shital Rai MR#: [id number] : 1960 Acct:[id number] Age/Sex: 61 / F Date of Service: 09/03/21 Loc: ED Accession Number: [id number] ?? Procedure: XR chest 1V Ordering Provider: Jadyn Bernal D.O. PROCEDURE:? XR CHEST 1V ? INDICATIONS:? syncope. +covid ? TECHNIQUE:? One view of the chest was acquired.? ? COMPARISON:? [facility], , XR CHEST 1V, 05/10/2019, 14:55. ? FINDINGS:? ? Surgical changes and devices:? None.? ? Lungs and pleura:? Lungs are clear.? No pleural effusions or pneumothorax.? ? Mediastinum:? Mediastinal contours appear normal.? Heart size is normal.? ? Bones and chest wall:? No suspicious bony lesions.? Overlying soft tissues appear unremarkable.? ? IMPRESSION:? ? 1.? No acute cardiopulmonary disease. ? ? ? Dictated by: Miguel Parker M.D. on 09/03/2021 at 22:38 ? ? Approved by: Miguel Parker M.D. on 09/03/2021 at 22:3 renal US: Radiologist's Impression: Close Renal Ultrasound (Signed) Miguel Parker - 09/03/21 Chest X-Ray (Signed) Miguel Parker - 09/03/21 [facility] [id number] Ultrasound Report Signed Patient: Shital Rai MR#: [id number] : 1960 Acct:[id number] Age/Sex: 61 / F Date of Service: 09/03/21 Loc: ED Accession Number: [id number] ?? Procedure: US renal complete Ordering Provider: Jadyn Bernal D.O. PROCEDURE:? US RENAL COMPLETE ? INDICATIONS:? syncope, BERTHA, covid ? TECHNIQUE:? Real-time scanning was performed of the kidneys and bladder, with image documentation.? ? COMPARISON:? None. ? FINDINGS:? ? Kidneys:? Right kidney measures 10.7 cm long; left kidney measures 1.1 cm long.? The renal cortex thickness measures approximately 1.3 cm on the right and vy roximately 1.6 cm on the left.? Renal cortical echotexture is normal.? There are extrarenal pelves demonstrated in both kidneys.? No definite hydronephrosis. ? Bladder:? Pre-void bladder volume is 43 mL.? Patient was unable to void.? Pre- void images demonstrate no intraluminal masses or stones.? On pre-void images, bilateral ureteral jets are noted with color Doppler interrogation.? ? Miscellaneous:? No free pelvic fluid.? ? IMPRESSION:? ? 1. No definite evidence of hydronephrosis.? There are bilateral extrarenal pelves noted.? Dictated by: Miguel Parker M.D. on 09/04/2021 at 0:46 ? ? Approved by: Miguel Parker M.D. on 09/04/2021 at 0:50?? ECG Data Attestation: I personally reviewed and interpreted this ECG as follows: Prior ECG tracings: available for review Interpretation: Sinus rhythm rate of 78 ID 146 QRS 84 and QTC 430. T-wave inverted in lead 3. No acute ST elevation depression noted otherwise. Patient has prior from 05/10/2019 that shows upright T in lead 3 but no other changes. MDM Narrative Medical decision making narrative: This is a 61-year-old female on antidepressant with no other known medical issues who tested positive for COVID at home. She had syncopal episode when she walked downstairs to go to the bathroom. She is had 1 similar episode while ill in the past. She is hypotensive upon arrival although ambulating and denies dizziness currently. She is not tachycardic. She is not any medications that should blunt tachycardic response or cause hypotension. Patient does have a small laceration on her face that requires repair. Chest x-ray, EKG and labs including cardiac enzymes were obtained to evaluate for possible carditis. Patient's creatinine is elevated at 1.13 was 0.7 about 2 years ago, BUN is not elevated, troponin is negative, BNP is very mildly elevated. Patient has calcium oxalate crystals, bacteria, 5-10 squamous epithelials, she is positive for protein and leukocyte esterase. Patient was quite hypotensive on arrival but improved with fluids. Discharge Plan Departure Patient Disposition: Home Clinical Impression: Syncope, Laceration of face, COVID-19 virus infection Instructions: DI for Syncope in Adults (Fainting) Activity Restrictions/Additional Instructions: Your renal function is elevated today, please follow-up with your physician in the next week to have your creatinine rechecked. Ultrasound of her kidneys shows bilateral extrarenal pelvis but no other changes to the kidneys. Referral to ENT is included if in the future you would like your laceration to have revision. Wound Care: Keep wound(s) clean and dry. Wash daily with soap and water only. Do not use over the counter products (alcohol or peroxide)on the wounds unless instructed by a physician. You may use a moisturizer such as Aquaphor after the incision has healed and sutures have dissolved, also make sure you use sunscreen (once the wound is healed) and plenty of sun protection such as hats while the area is healing. If wound condition worsens (increased/expanding redness, developing fluid blisters, or worsening pain), either contact your doctor for an urgent re- assessment , or return to the Emergency Department. Return to the Emergency Department for any new or worsening symptoms. Return if fever greater than 100.4 Fahrenheit, increased swelling, increasing pain or worsening symptoms such as increased discharge or spreading redness. Severe headaches, new confusion, new neck or back pain, new chest pain, shortnes s of breath, persistent vomiting, decreasing urine output or other new or concerning symptoms. Prescriptions: No Action No Known Home Medications Referrals: Lv Rivas MD [Physician] - Tashia Gonzalez MD [Primary Care Provider] - Visit Report Forms: Patient Portal/API
[2021-09-03 22:02] VITALS: BP 102/48; BP 74/50; BP 78/51; PULSE 73; PULSE 75; PULSE 87
[2021-09-03 22:07] VITALS: TEMP 37.1
[2021-09-03 22:16] LABS: Add Manual Diff / Slide Review NO; Basophils Absolute Auto 0 /uL (0-100); Basophils Percent Auto 0.3 % (0-2); Eosinophils Absolute Auto 0 /uL (0-450); Eosinophils Percent Auto 0.1 % (2-4); Hematocrit 38.7 % (36-46); Hemoglobin 12.9 g/dL (12.0-16.0); Lymphocytes Absolute Auto 1700 /uL (1100-4500); Lymphocytes Percent Auto 21.5 % (25-40); Mean Corpuscular HGB Conc 33.3 % (30-36); Mean Corpuscular Hemoglobin 29.1 PG (26-34); Mean Corpuscular Volume 87.2 fL (80-100); Monocytes Absolute Auto 700 /uL (0-900); Monocytes Percent Auto 8.5 % (3-14); Neutrophils Absolute Auto 5600 /uL (1500-7000); Neutrophils Percent Auto 69.6 % (50-75); Platelet Count 255 X10^3/uL (150-400); Red Blood Cell Count 4.44 X10^6/uL (4.0-5.2); Red Cell Distribution Width 14.1 % (11.6-14.8)
[2021-09-03] MEDS: SODIUM CHLORIDE 0.9% 1,000 ML 1000 ML IV (22:18)
[2021-09-03] MEDS: TET,DIPH,PERTUSS(ACELL),VAC/PF 0.5 ML SYRINGE IM (22:19)
[2021-09-03 22:20] LABS: INR 1.1 (0.9-1.3); Prothrombin Time 11.9 SECONDS (10.1-12.7)
[2021-09-03 22:23] LABS: PTT Partial Thromboplastin Tim 26 SECONDS (26.4-36.2)
[2021-09-03 22:26] LABS: Alanine Aminotransferase 19 IU/L (<35); Albumin Globulin Ratio 1.2 (1.0-2.8); Alkaline Phosphatase 73 U/L (38-126); Aspartate Aminotransferase 25 IU/L (14-36); BUN Creatinine Ratio 12.4 (6-22); Bilirubin Total 0.4 mg/dL (0.2-1.3); Blood Urea Nitrogen 14 mg/dL (7-17); Calcium 8.9 mg/dL (8.4-10.2); Carbon Dioxide 29 mmol/L (22-32); Chloride 99 mmol/L (98-107); Creatine Kinase 42 U/L (30-135); Estimated Glomerular Filt Rate 56 mL/min (>60); Globulin 3.3 g/dL (1.7-4.1); Glucose 143 mg/dL (70-100); HEMOLYSIS < 15 (0-50); Lipase 451 U/L (23-300); Sodium 137 mmol/L (137-145); Total Protein 7.3 g/dL (6.3-8.2)
[2021-09-03 22:30] VITALS: BP 87/53; PULSE 72; RESP 18; O2SAT 95
[2021-09-03 22:36] LABS: NT-proBNP (BNP-Adult 18+) 170 pg/mL (<125)
[2021-09-03 22:38] LABS: Troponin I < 0.012 ng/mL (0.01-0.034)
[2021-09-03 22:50] LABS: Ictotest Urine Negative (Negative)
[2021-09-03 22:53] LABS: RBC Urine 0-1/HPF (0-5/HPF); Squamous Epithelial Cell Urine 5-10 /HPF (0-5/HPF); WBC Urine 1-5/HPF (0-5/HPF)
[2021-09-03 22:54] LABS: Bacteria Urine Many (>30); Calcium Oxalate Crystals Urine Many
[2021-09-03 22:55] LABS: Hyaline Casts Urine 10-30/LPF; Mucus Urine 1+ (Negative)
[2021-09-03 23:00] VITALS: BP 119/62; PULSE 76; RESP 16; O2SAT 98
--- NOTE | 2021-09-03 23:10 | DI.US.S_ITS ---
PROCEDURE: US RENAL COMPLETE INDICATIONS: syncope, BERTHA, covid TECHNIQUE: Real-time scanning was performed of the kidneys and bladder, with image documentation. COMPARISON: None. FINDINGS: Kidneys: Right kidney measures 10.7 cm long; left kidney measures 1.1 cm long. The renal cortex thickness measures approximately 1.3 cm on the right and approximately 1.6 cm on the left. Renal cortical echotexture is normal. There are extrarenal pelves demonstrated in both kidneys. No definite hydronephrosis. Bladder: Pre-void bladder volume is 43 mL. Patient was unable to void. Pre-void images demonstrate no intraluminal masses or stones. On pre-void images, bilateral ureteral jets are noted with color Doppler interrogation. Miscellaneous: No free pelvic fluid. IMPRESSION: 1. No definite evidence of hydronephrosis. There are bilateral extrarenal pelves noted. Dictated by: Miguel Parker M.D. on 09/04/2021 at 0:46 Approved by: Miguel Parker M.D. on 09/04/2021 at 0:50
[2021-09-03 23:30] VITALS: BP 102/59; PULSE 76; RESP 13; O2SAT 96
[2021-09-03] MEDS: LIDOCAINE 2% INJ SDV 10 ML INJ (23:57)
[2021-09-04] VITALS: BP 100/60; PULSE 79; RESP 18; O2SAT 97
[2021-09-04 00:30] VITALS: PULSE 79; RESP 12; O2SAT 97
[2021-09-04 01:00] VITALS: BP 94/51; PULSE 81; RESP 17; O2SAT 96
== END 2021-09-04 01:07 | disposition home or self-care (01) ==
PROVIDERS: Emergency Provider Emergency Medicine; PCP Internal Medicine
DX: R55 Syncope and collapse (principal); S01.81XA Laceration without foreign body of other part of head, initial encounter; W19.XXXA Unspecified fall, initial encounter; U07.1 COVID-19; Z23 Encounter for immunization
CPT/HCPCS: 12011; 36415; 71045; 76770; 80053; 81003; 81015; 81025; 82550; 82962; 83690; 83880; 84484; 85025; 85610; 85730; 87077; 87086; 87186; 90471; 93005; 93010; 96360; 99284; 99285; 90715

== ENCOUNTER → 2022-03-03 08:03 | Outpatient (CLI) | payer OTHER, SELFPAY ==
--- NOTE | 2022-03-03 | DI.MG.S_ITS ---
BILATERAL DIGITAL SCREENING MAMMOGRAM 3D/2D WITH CAD: 03/03/2022 CLINICAL: Routine screening. Family history of breast cancer. Comparison is made to exams dated: 02/24/2021 mammogram, 02/19/2020 mammogram, 02/12/2019 mammogram, 01/27/2018 mammogram, 01/16/2017 mammogram, and 12/29/2015 mammogram - [facility]. There are scattered areas of fibroglandular density in both breasts (category b / 25%-50% glandular tissue). Current study was also evaluated with a Computer Aided Detection (CAD) system. There is a biopsy clip in the right breast. No significant masses, calcifications, or other findings are seen in either breast. There has been no significant interval change. IMPRESSION: NEGATIVE There is no mammographic evidence of malignancy. A 1 year screening mammogram is recommended. This exam was interpreted at Station ID: [id number]. NOTE: For mammograms, a report in lay terms will be sent to the patient. Approximately 15% of breast malignancies will not be visualized mammographically. In the management of a palpable breast mass, a negative mammogram must not discourage biopsy of a clinically suspicious lesion. Electronically Signed By: Jadon Bond M.D., jr/carroll:03/03/2022 13:33:01 copy to: Anabelle Cuellar letter sent: Normal Exam ACR BI-RADS Category 1: Negative 3341F
== END ==
PROVIDERS: PCP Internal Medicine; Referring Provider Internal Medicine; Visit Provider Internal Medicine
DX: Z12.31 Encounter for screening mammogram for malignant neoplasm of breast (principal); Z80.3 Family history of malignant neoplasm of breast
CPT/HCPCS: 77063; 77067

== ENCOUNTER → 2023-04-12 12:46 | Outpatient (CLI) | payer OTHER, SELFPAY ==
--- NOTE | 2023-04-12 | DI.MG.S_ITS ---
BILATERAL DIGITAL SCREENING MAMMOGRAM 3D/2D WITH CAD: 04/12/2023 CLINICAL: Routine screening. Family history of breast cancer. Comparison is made to exams dated: 03/03/2022 mammogram, 02/24/2021 mammogram, and 02/19/2020 mammogram - [facility]. There are scattered areas of fibroglandular density in both breasts (category b / 25%-50% glandular tissue). Current study was also evaluated with a Computer Aided Detection (CAD) system. There are benign calcifications in the right breast. There also is a biopsy clip in the right breast. No significant masses, calcifications, or other findings are seen in either breast. There has been no significant interval change. IMPRESSION: BENIGN There is no mammographic evidence of malignancy. A 1 year screening mammogram is recommended. Based on the Tyrer Cuzick model (a risk assessment model) the patient's lifetime risk is 15.9% and her 10 year risk is 6.8%. According to the ACR, ACS, and NCCN guidelines, an annual breast MRI exam along with mammogram is recommended if the patient's lifetime risk is 20% or greater. This exam was interpreted at Station ID: [id number]. NOTE: For mammograms, a report in lay terms will be sent to the patient. Approximately 15% of breast malignancies will not be visualized mammographically. In the management of a palpable breast mass, a negative mammogram must not discourage biopsy of a clinically suspicious lesion. Electronically Signed By: Dionne mcgowan/carroll:04/12/2023 14:31:09 copy to: Anabelle Cuellar letter sent: Normal Exam ACR BI-RADS Category 2: Benign Finding(s) 3342F
== END ==
LOC: MAMMO 12:47
PROVIDERS: PCP Internal Medicine; Referring Provider Internal Medicine; Visit Provider Internal Medicine
DX: Z12.31 Encounter for screening mammogram for malignant neoplasm of breast (principal); Z80.3 Family history of malignant neoplasm of breast; R92.323 Mammographic fibroglandular density, bilateral breasts
CPT/HCPCS: 77063; 77067

== ENCOUNTER → 2024-05-02 12:48 | Outpatient (CLI) | payer OTHER, SELFPAY ==
--- NOTE | 2024-05-02 | DI.MG.S_ITS ---
MM screening mammo BI: 05/02/2024. BI-RADS: 2 CLINICAL: 64-year old female for bilateral screening mammogram. Tyrer-Cuzick lifetime risk of 12.4%. Current reported family history of breast cancer: mother. The patient had a prior right breast biopsy. PRIOR EXAMS 04/12/2023, 03/03/2022, 02/24/2021, 02/19/2020, 02/12/2019, 01/27/2018, 01/16/2017, 12/29/2015. MAMMOGRAPHY TECHNIQUE: 2D and 3D (tomosynthesis) digital mammographic views obtained, with additional images as needed for full coverage. Current study was also evaluated with a Computer Aided Detection (CAD) system. DENSITY B. There are scattered areas of fibroglandular density. MAMMOGRAPHY FINDINGS Right: Biopsy marker present on the right. Benign-appearing calcification noted on the right. There are no suspicious masses, calcifications, or other findings in the breast. No significant change from comparison. Left: No suspicious mass, asymmetry, microcalcification, or other abnormality seen. No significant change from comparison. IMPRESSION: Right * No evidence of malignancy with benign findings. Left * No evidence of malignancy. RECOMMENDATIONS Bilateral * Annual screening mammography. OVERALL ASSESSMENT CATEGORY BI-RADS-2: Benign. [employer] recommends annual screening mammography beginning at age 40 for women with average risk of breast cancer. ELECTRONICALLY SIGNED: Liberty Dobbs M.D. on 05/02/2024 at 04:33:06 PM PT Interpreting Station ID: [id number]
== END ==
PROVIDERS: PCP Internal Medicine; Referring Provider Internal Medicine; Visit Provider Internal Medicine
DX: Z12.31 Encounter for screening mammogram for malignant neoplasm of breast (principal); Z80.3 Family history of malignant neoplasm of breast
CPT/HCPCS: 77063; 77067